=== PATIENT | female | born 1955 | race Asian ===

== ENCOUNTER 2020-10-19 08:43 | Emergency (ER) | payer SELFPAY ==
[2020-10-19 08:51] VITALS: BP 198/75; PULSE 84; TEMP 98.6; BMI 36.1
[2020-10-19] MEDS ORDERED: KETOROLAC TROMETHAMINE 30 MG/1 ML VIAL IM ONE (09:17)
[2020-10-19] MEDS ORDERED: KETOROLAC TROMETHAMINE 30 MG/1 ML VIAL ONE (09:23)
== END 2020-10-19 10:05 | disposition home or self-care (01) ==
LOC: JER 08:43 → JERFT 08:43
PROC: 3E0233Z Introduction of Anti-inflammatory into Muscle, Percutaneous Approach (ICD-10-PCS; principal; 2020-10-19)
DX: M25.512 Pain in left shoulder (principal)
CPT/HCPCS: 73030-TC-LT-FY; 99284-25

== ENCOUNTER 2024-03-20 19:32 | Emergency (ER) | payer OTHER ==
[2024-03-20 19:58] VITALS: BP 144/74; PULSE 71; RESP 18; TEMP 97.1; BMI 37.0
[2024-03-20] MEDS ORDERED: LORATADINE 10 MG TABLET ONE (20:27)
[2024-03-20] MEDS: LORATADINE 10 MG TABLET PO ONE (20:28)
[2024-03-20] MEDS: BENZONATATE 200 MG CAPSULE PO ONE (20:57)
== END 2024-03-20 21:16 | disposition home or self-care (01) ==
LOC: JER 19:32
DX: R05.9 Cough, unspecified (principal); J40 Bronchitis, not specified as acute or chronic; R09.82 Postnasal drip; Z20.822 Contact with and (suspected) exposure to COVID-19
CPT/HCPCS: 0241U-QW; 71046-TC-FY; 99284-25